=== PATIENT | female | born 1955 | race Caucasian/White ===

== ENCOUNTER 2020-12-28 12:46 | Inpatient (IN) | payer MEDICARE ==
--- NOTE | 2020-12-28 13:17 | ED ---
Altered Mental Status HPI - General Chief Complaint: Altered Mental Status Stated Complaint: Swelling Source: patient, EMS Mode of arrival: EMS - History of Present Illness Initial Comments: Patient is a 65-year-old female with past medical history of chronic renal failure, hepatorenal syndrome who presents to the emergency department from [facility]. She has only been at their facility for 2 days. Previously she was Hospital at [facility]. [facility] felt the patient has had altered mental status. Also report to worsening abdominal distention and low blood pressure. Patient is a very poor historian and cannot provide much history therefore the HPI is limited. Patients family presents and states the patient fell in September. Has been hospitalized since. She normally gets paracenetesis every 3 weeks however she refused the last one she was offered. They do agree she is confused with worsening abdominal distention. - Related Data Home Medications Medication Instructions Recorded Confirmed Acetaminophen Tab [Tylenol] 650 mg PO Q6H PRN 12/28/20 12/28/20 Folic Acid 1 mg PO HS 12/28/20 12/28/20 Lactulose 20 gm PO TID@0700,1300,1900 12/28/20 12/28/20 Levothyroxine Sodium [Synthroid] 25 mcg PO DAILY 12/28/20 12/28/20 Pantoprazole Sodium [Protonix] 40 mg PO DAILY 12/28/20 12/28/20 Potassium Chloride ER [K-Dur 20] 40 meq PO BID@0700,1600 12/28/20 12/28/20 Sennosides [Senna] 8.6 mg PO BID PRN 12/28/20 12/28/20 Thiamine [Vitamin B-1] 50 mg PO HS 12/28/20 12/28/20 Vitamin B Complex 1 cap PO HS 12/28/20 12/28/20 traMADol HCL 50 mg PO BID PRN 12/28/20 12/28/20 Allergies Allergy/AdvReac Type Severity Reaction Status Date / Time No Known Allergies Allergy Verified 12/28/20 14:12 Review of Systems ROS Statement: Those systems with pertinent positive or pertinent negative responses have been documented in the HPI. ROS Other: All systems not noted in ROS Statement are negative. Past Medical History Past Medical History: GERD/Reflux, Liver Disease, Renal Disease Additional Past Medical History / Comment(s): fx. L humerus,hepatorenal syndrome, alcoholic cirrosis ofliver with ascites, anemia History of Any Multi-Drug Resistant Organisms: None Reported Past Surgical History: No Surgical Hx Reported Past Psychological History: No Psychological Hx Reported Smoking Status: Never smoker Past Alcohol Use History: None Reported Past Drug Use History: None Reported General Exam Limitations: altered mental status General appearance: alert, in no apparent distress, cachectic Head exam: Present: atraumatic, normocephalic, normal inspection Eye exam: Present: PERRL, EOMI ENT exam: Present: mucous membranes dry Respiratory exam: Present: normal lung sounds bilaterally. Absent: respiratory distress, wheezes, rales, rhonchi, stridor Cardiovascular Exam: Present: tachycardia GI/Abdominal exam: Present: distended, tenderness Back exam: Present: other (stage 2 sacral wound) Neurological exam: Present: alert Psychiatric exam: Present: anxious Skin exam: Present: pallor Course Vital Signs 12/28/20 12/28/20 12/28/20 12:48 13:55 14:55 Temperature 96.7 F L Pulse Rate 115 H 118 H 120 H Respiratory 19 Rate Blood Pressure 88/75 86/57 81/64 O2 Sat by Pulse 97 Oximetry 12/28/20 12/28/20 12/28/20 15:55 16:55 17:42 Temperature 98.5 F Pulse Rate 115 H 110 H 112 H Respiratory 20 Rate Blood Pressure 85/54 90/53 95/38 O2 Sat by Pulse 96 98 Oximetry 12/28/20 12/28/20 12/28/20 17:53 20:33 20:34 Temperature 98.1 F Pulse Rate 105 H 108 H Respiratory 18 18 Rate Blood Pressure 100/37 90/74 90/74 O2 Sat by Pulse 100 98 Oximetry 12/28/20 20:43 Temperature Pulse Rate 107 H Respiratory 18 Rate Blood Pressure 97/68 O2 Sat by Pulse 97 Oximetry Procedures - Sepsis Sepsis Focused Exam #1 Time Sepsis Criteria Met: 14:27 Sepsis Focused Exam Date: 12/28/20 Sepsis Focused Exam Time: 20:05 Sepsis Focused Exam Complete: Yes Vital Signs & RN Notes Reviewed: Yes Capillary Refill: < 2 Seconds: Fingers, Toes Peripheral Pulses: Weak: Radial (R), Radial (L) Skin Color: Ashen, Pallor Respiratory Exam: decreased breath sounds Cardiovascular Exam: tachycardia Medical Decision Making - Medical Decision Making Upon arrival patient was placed into room 12. A thorough history and physical exam is performed. IV is established the patient is started on IV fluids. She does have improvement in her blood pressures and heart rate. Laboratories is conducted. Demonstrate a white count of 18.4. Creatinine is 2.1. Unknown the patient's baseline. Urinalysis is grossly infected. Cultures obtained and the patient initiated on Rocephin. CT performed of the patient's brain which i nserts no acute findings. Chest x-ray is performed which demonstrates no evidence for pulmonary disease. CT the abdomen and pelvis demonstrates increasing abdominal ascites. Discussed the case with the patient's family. Recommended admission for which the patient and family did agree to. Family requested the patient remain a full code. I will consult GI. I did speak with Dr. Horner. Patient is currently awaiting a bed on the floor - Lab Data Result diagrams: 12/29/20 04:42 12/29/20 04:42 Lab Results 12/28/20 12/28/20 12/28/20 Range/Units 13:37 13:57 13:57 WBC 18.4 H (3.8-10.6) k/uL RBC 3.29 L (3.80-5.40) m/uL Hgb 10.1 L (11.4-16.0) gm/dL Hct 30.4 L (34.0-46.0) % MCV 92.4 (80.0-100.0) fL MCH 30.8 (25.0-35.0) pg MCHC 33.3 (31.0-37.0) g/dL RDW 15.5 (11.5-15.5) % Plt Count 267 (150-450) k/uL MPV 8.2 Neutrophils % 83 % Lymphocytes % 11 % Monocytes % 4 % Eosinophils % 1 % Basophils % 0 % Neutrophils # 15.4 H (1.3-7.7) k/uL Lymphocytes # 2.0 (1.0-4.8) k/uL Monocytes # 0.8 (0-1.0) k/uL Eosinophils # 0.1 (0-0.7) k/uL Basophils # 0.0 (0-0.2) k/uL PT 12.0 (9.0-12.0) sec INR 1.1 (<1.2) APTT 28.4 (22.0-30.0) sec Sodium (137-145) mmol/L Potassium (3.5-5.1) mmol/L Chloride (98-107) mmol/L Carbon Dioxide (22-30) mmol/L Anion Gap mmol/L BUN (7-17) mg/dL Creatinine (0.52-1.04) mg/dL Est GFR (CKD-EPI)AfAm (>60 ml/min/1.73 sqM) Est GFR (CKD-EPI)NonAf (>60 ml/min/1.73 sqM) Glucose (74-99) mg/dL POC Glucose (mg/dL) 121 H (75-99) mg/dL POC Glu Jira Developer ID Simon Stevens Plasma Lactic Acid Rakesh (0.7-2.0) mmol/L Calcium (8.4-10.2) mg/dL Magnesium (1.6-2.3) mg/dL Total Bilirubin (0.2-1.3) mg/dL AST (14-36) U/L ALT (4-34) U/L Alkaline Phosphatase (38-126) U/L Ammonia (<30) umol/L Creatine Kinase (30-135) U/L Troponin I (0.000-0.034) ng/mL Total Protein (6.3-8.2) g/dL Albumin (3.5-5.0) g/dL TSH (0.465-4.680) mIU/L Free T4 (0.78-2.19) ng/dL Urine Color Urine Appearance (Clear) Urine pH (5.0-8.0) Ur Specific [place] (1.001-1.035) Urine Protein (Negative) Urine Glucose (UA) (Negative) Urine Ketones (Negative) Urine Blood (Negative) Urine Nitrite (Negative) Urine Bilirubin (Negative) Urine Urobilinogen (<2.0) mg/dL Ur Leukocyte Esterase (Negative) Urine RBC (0-5) /hpf Urine WBC (0-5) /hpf Urine WBC Clumps (None) /hpf Amorphous Sediment (None) /hpf Urine Bacteria (None) /hpf Urine Mucus (None) /hpf 12/28/20 12/28/20 12/28/20 Range/Units 13:57 13:57 13:57 WBC (3.8-10.6) k/uL RBC (3.80-5.40) m/uL Hgb (11.4-16.0) gm/dL Hct (34.0-46.0) % MCV (80.0-100.0) fL MCH (25.0-35.0) pg MCHC (31.0-37.0) g/dL RDW (11.5-15.5) % Plt Count (150-450) k/uL MPV Neutrophils % % Lymphocytes % % Monocytes % % Eosinophils % % Basophils % % Neutrophils # (1.3-7.7) k/uL Lymphocytes # (1.0-4.8) k/uL Monocytes # (0-1.0) k/uL Eosinophils # (0-0.7) k/uL Basophils # (0-0.2) k/uL PT (9.0-12.0) sec INR (<1.2) APTT (22.0-30.0) sec Sodium 131 L (137-145) mmol/L Potassium 4.5 (3.5-5.1) mmol/L Chloride 101 (98-107) mmol/L Carbon Dioxide 21 L (22-30) mmol/L Anion Gap 9 mmol/L BUN 53 H (7-17) mg/dL Creatinine 2.16 H (0.52-1.04) mg/dL Est GFR (CKD-EPI)AfAm 27 (>60 ml/min/1.73 sqM) Est GFR (CKD-EPI)NonAf 23 (>60 ml/min/1.73 sqM) Glucose 122 H (74-99) mg/dL POC Glucose (mg/dL) (75-99) mg/dL POC Glu Jira Developer ID Plasma Lactic Acid Rakesh (0.7-2.0) mmol/L Calcium 8.3 L (8.4-10.2) mg/dL Magnesium 2.0 (1.6-2.3) mg/dL Total Bilirubin 0.9 (0.2-1.3) mg/dL AST 39 H (14-36) U/L ALT 21 (4-34) U/L Alkaline Phosphatase 162 H (38-126) U/L Ammonia (<30) umol/L Creatine Kinase 48 (30-135) U/L Troponin I <0.012 (0.000-0.034) ng/mL Total Protein 6.2 L (6.3-8.2) g/dL Albumin 2.4 L (3.5-5.0) g/dL TSH 5.520 H (0.465-4.680) mIU/L Free T4 2.19 (0.78-2.19) ng/dL Urine Color Yellow Urine Appearance Turbid H (Clear) Urine pH 5.5 (5.0-8.0) Ur Specific [place] 1.019 (1.001-1.035) Urine Protein 2+ H (Negative) Urine Glucose (UA) Negative (Negative) Urine Ketones Trace H (Negative) Urine Blood Large H (Negative) Urine Nitrite Negative (Negative) Urine Bilirubin Negative (Negative) Urine Urobilinogen <2.0 (<2.0) mg/dL Ur Leukocyte Esterase Large H (Negative) Urine RBC 122 H (0-5) /hpf Urine WBC >182 H (0-5) /hpf Urine WBC Clumps Many H (None) /hpf Amorphous Sediment Rare H (None) /hpf Urine Bacteria Many H (None) /hpf Urine Mucus Few H (None) /hpf 12/28/20 12/28/20 Range/Units 13:57 13:57 WBC (3.8-10.6) k/uL RBC (3.80-5.40) m/uL Hgb (11.4-16.0) gm/dL Hct (34.0-46.0) % MCV (80.0-100.0) fL MCH (25.0-35.0) pg MCHC (31.0-37.0) g/dL RDW (11.5-15.5) % Plt Count (150-450) k/uL MPV Neutrophils % % Lymphocytes % % Monocytes % % Eosinophils % % Basophils % % Neutrophils # (1.3-7.7) k/uL Lymphocytes # (1.0-4.8) k/uL Monocytes # (0-1.0) k/uL Eosinophils # (0-0.7) k/uL Basophils # (0-0.2) k/uL PT (9.0-12.0) sec INR (<1.2) APTT (22.0-30.0) sec Sodium (137-145) mmol/L Potassium (3.5-5.1) mmol/L Chloride (98-107) mmol/L Carbon Dioxide (22-30) mmol/L Anion Gap mmol/L BUN (7-17) mg/dL Creatinine (0.52-1.04) mg/dL Est GFR (CKD-EPI)AfAm (>60 ml/min/1.73 sqM) Est GFR (CKD-EPI)NonAf (>60 ml/min/1.73 sqM) Glucose (74-99) mg/dL POC Glucose (mg/dL) (75-99) mg/dL POC Glu Jira Developer ID Plasma Lactic Acid Rakesh 3.3 H* (0.7-2.0) mmol/L Calcium (8.4-10.2) mg/dL Magnesium (1.6-2.3) mg/dL Total Bilirubin (0.2-1.3) mg/dL AST (14-36) U/L ALT (4-34) U/L Alkaline Phosphatase (38-126) U/L Ammonia 14 (<30) umol/L Creatine Kinase (30-135) U/L Troponin I (0.000-0.034) ng/mL Total Protein (6.3-8.2) g/dL Albumin (3.5-5.0) g/dL TSH (0.465-4.680) mIU/L Free T4 (0.78-2.19) ng/dL Urine Color Urine Appearance (Clear) Urine pH (5.0-8.0) Ur Specific [place] (1.001-1.035) Urine Protein (Negative) Urine Glucose (UA) (Negative) Urine Ketones (Negative) Urine Blood (Negative) Urine Nitrite (Negative) Urine Bilirubin (Negative) Urine Urobilinogen (<2.0) mg/dL Ur Leukocyte Esterase (Negative) Urine RBC (0-5) /hpf Urine WBC (0-5) /hpf Urine WBC Clumps (None) /hpf Amorphous Sediment (None) /hpf Urine Bacteria (None) /hpf Urine Mucus (None) /hpf - EKG Data EKG Comments: EKG demonstrates sinus tachycardia with a ventricular rate of 122. HI interval 150. QRS 92. QTC of 436. Wide-complex. No acute ST segments elevations or depressions Disposition Clinical Impression: Sepsis, UTI (urinary tract infection), Hepatorenal syndrome, Ascites Disposition: ADMITTED IP TO THIS HOSP Condition: Critical Is patient prescribed a controlled substance at d/c from ED?: No Decision to Admit Reason: Admit from EC Decision Date: 12/28/20 Decision Time: 16:46
[2020-12-28 13:40] LABS: Glucose,Whole Blood 121 mg/dL (75-99)
[2020-12-28 14:25] LABS: Amorphous Sediment,Urine Rare /hpf; Appearance,Urine Turbid (Clear); Bacteria,Urine Many /hpf; Bilirubin,Urine Negative (Negative); Blood,Urine Large (Negative); Color,Urine Yellow; Glucose,Urine (UA) Negative (Negative); Ketones,Urine Trace (Negative); Leukocyte Esterase,Urine Large (Negative); Mucus,Urine Few /hpf; Nitrite,Urine Negative (Negative); PH, Urine 5.5 (5.0-8.0); Protein,Urine 2+ (Negative); RBC,Urine 122 /hpf (0-5); Specific Gravity,Urine 1.019 (1.001-1.035); Urobilinogen,Urine <2.0 mg/dL (<2.0); WBC,Urine >182 /hpf (0-5)
[2020-12-28 14:35] LABS: Albumin 2.4 g/dL (3.5-5.0); Calcium 8.3 mg/dL (8.4-10.2); Potassium 4.5 mmol/L (3.5-5.1); Total Bilirubin 0.9 mg/dL (0.2-1.3); Total Protein 6.2 g/dL (6.3-8.2)
[2020-12-28 14:36] LABS: Basophils % (A) 0 %; Eosinophils # (A) 0.1 k/uL (0-0.7); Eosinophils % (A) 1 %; HCT 30.4 % (34.0-46.0); HGB 10.1 gm/dL (11.4-16.0); Lymphocytes % (A) 11 %; MCH 30.8 pg (25.0-35.0); MCHC 33.3 g/dL (31.0-37.0); MCV 92.4 fL (80.0-100.0); Mean Platelet Volume 8.2; Monocytes # (A) 0.8 k/uL (0-1.0); Monocytes % (A) 4 %; Neutrophils # (A) 15.4 k/uL (1.3-7.7); Neutrophils % (A) 83 %; Platelet Count 267 k/uL (150-450); RBC 3.29 m/uL (3.80-5.40); RDW 15.5 % (11.5-15.5); WBC 18.4 k/uL (3.8-10.6)
[2020-12-28 14:41] LABS: INR 1.1 (<1.2)
[2020-12-28 14:42] LABS: Partial Thromboplastin Time 28.4 sec (22.0-30.0)
--- NOTE | 2020-12-28 14:46 | XR ---
EXAMINATION TYPE: XR chest 2V DATE OF EXAM: 12/28/2020 COMPARISON: NONE HISTORY: Shortness of breath TECHNIQUE: Frontal and lateral views of the chest are obtained. FINDINGS: Scattered senescent parenchymal changes noted. Hyperinflation compatible with COPD. No evidence for infiltrate. No evidence for atelectasis. Heart size is stable. Mediastinal structures are stable and grossly unremarkable. No evidence for hilar prominence. Degenerative changes dorsal spine. IMPRESSION: 1. No evidence for acute pulmonary disease.
[2020-12-28] MEDS ORDERED: SODIUM CHLORIDE 0.9% 500 ML 500 ML IV ONE ×2 (15:10→16:43)
[2020-12-28] MEDS ORDERED: cefTRIAXone IN SWFI 1,000 MG/10 ML SYRINGE IVP STA (15:11)
--- NOTE | 2020-12-28 15:57 | CT ---
EXAMINATION TYPE: CT brain wo con DATE OF EXAM: 12/28/2020 COMPARISON: None INDICATION: altered mental status DLP: 1098.4 mGycm, Automated exposure control for dose reduction was used. CONTRAST: None CT of the brain is performed utilizing 3 mm thick sections through the posterior fossa and 3 mm thick sections through the remaining calvarium. Study is performed within 24 hours of arrival to the hosp ital. No abnormal hyperdensity is present to suggest an acute intracranial hemorrhage. No mass lesion is evident. No acute infarcts are evident. There is mild periventricular white matter hypodensity which is nonspe cific but can be related to chronic white matter ischemic changes. Ventricles and sulci are prominent for the patient age. Paranasal sinuses and mastoid air cells within the [id number] are clear. IMPRESSIONS: 1. Atrophy with chronic appearing periventricular white matter ischemic type changes
[2020-12-28 16:00] LABS: T4, Free (Free Thyroxine) 2.19 ng/dL (0.78-2.19)
--- NOTE | 2020-12-28 16:05 | CT ---
EXAMINATION TYPE: CT abdomen pelvis wo con DATE OF EXAM: 12/28/2020 COMPARISON: None INDICATION: abdominal distention DLP: 578.8 mGycm, Automated exposure control for dose reduction was used. CONTRAST: 0 mL of Isovue 300. Study performed without Oral Contrast TECHNIQUE: Axial images were obtained from above the diaphragm to the pubic rami in the axial plane a t 5 mm thick sections. Reconstructed images are reviewed on the computer in the coronal plane. FINDINGS: Limited CT sections are obtained the lung bases. The lung bases are clear. Bilateral breast prosthe ses are present. Calcifications are at the edges of the breast prostheses. CT ABDOMEN: Largest amount of ascites is present. Liver: Liver appears small. Spleen: Normal Pancreas: Atrophic Adrenal glands: The adrenal glands are normal. Gallbladder: Cholelithiasis is present. Kidneys: No masses are evident. No hydronephrosis is present. No cysts are present. No renal stone s are evident. Aorta: Vascular calcification is within the aorta. Inferior vena cava: Normal. CT PELVIS: Multiple diverticuli within the sigmoid and descending colon. There may be some slight prominence of small bowel loops in left midabdomen. Bowel loops are poorly evaluated due to ascites and lack of ora l contrast. Appendix: Normal as visualized. Urinary bladder: Decompressed with Wheeler catheter Genitourinary structures: Calcified uterine fibroids are evident. Osseous structures: No suspicious lytic or sclerotic lesions. Distal left humeral fracture is at the edge of the [id number]. IMPRESSIONS: 1. Small liver. 2. Large amount of ascites. 3. Possible ileus. No obstruction is evident.
[2020-12-28] MEDS ORDERED: SODIUM CHLORIDE 0.9% 1,000 ML IV ONE (16:51)
[2020-12-28] MEDS ORDERED: NALOXONE 0.4 MG/ML 1 ML VIAL IV PRN (16:52)
[2020-12-28] MEDS: SODIUM CHLORIDE 0.9% 1,000 ML IV SCH (19:12)
[2020-12-28] MEDS ORDERED: LORazepam 2 MG/ML INJ IV STA ×2 (20:01→20:26)
--- NOTE | 2020-12-28 20:02 | ED ---
Medical Decision Making - Medical Decision Making Patient was persistently hypotensive. Central venous catheter line placement was placed. Patient started on Levophed. She will be dispositioned to the ICU. case discussed with fishing tool operator Dr. Rinaldi. - Lab Data Result diagrams: 12/28/20 13:57 12/28/20 13:57 Lab Results 12/28/20 12/28/20 12/28/20 Range/Units 13:37 13:57 13:57 WBC 18.4 H (3.8-10.6) k/uL RBC 3.29 L (3.80-5.40) m/uL Hgb 10.1 L (11.4-16.0) gm/dL Hct 30.4 L (34.0-46.0) % MCV 92.4 (80.0-100.0) fL MCH 30.8 (25.0-35.0) pg MCHC 33.3 (31.0-37.0) g/dL RDW 15.5 (11.5-15.5) % Plt Count 267 (150-450) k/uL MPV 8.2 Neutrophils % 83 % Lymphocytes % 11 % Monocytes % 4 % Eosinophils % 1 % Basophils % 0 % Neutrophils # 15.4 H (1.3-7.7) k/uL Lymphocytes # 2.0 (1.0-4.8) k/uL Monocytes # 0.8 (0-1.0) k/uL Eosinophils # 0.1 (0-0.7) k/uL Basophils # 0.0 (0-0.2) k/uL PT 12.0 (9.0-12.0) sec INR 1.1 (<1.2) APTT 28.4 (22.0-30.0) sec Sodium (137-145) mmol/L Potassium (3.5-5.1) mmol/L Chloride (98-107) mmol/L Carbon Dioxide (22-30) mmol/L Anion Gap mmol/L BUN (7-17) mg/dL Creatinine (0.52-1.04) mg/dL Est GFR (CKD-EPI)AfAm (>60 ml/min/1.73 sqM) Est GFR (CKD-EPI)NonAf (>60 ml/min/1.73 sqM) Glucose (74-99) mg/dL POC Glucose (mg/dL) 121 H (75-99) mg/dL POC Glu Welding Technician Simon Gaines Plasma Lactic Acid Rakesh (0.7-2.0) mmol/L Calcium (8.4-10.2) mg/dL Magnesium (1.6-2.3) mg/dL Total Bilirubin (0.2-1.3) mg/dL AST (14-36) U/L ALT (4-34) U/L Alkaline Phosphatase (38-126) U/L Ammonia (<30) umol/L Creatine Kinase (30-135) U/L Troponin I (0.000-0.034) ng/mL Total Protein (6.3-8.2) g/dL Albumin (3.5-5.0) g/dL TSH (0.465-4.680) mIU/L Free T4 (0.78-2.19) ng/dL Urine Color Urine Appearance (Clear) Urine pH (5.0-8.0) Ur Specific [place] (1.001-1.035) Urine Protein (Negative) Urine Glucose (UA) (Negative) Urine Ketones (Negative) Urine Blood (Negative) Urine Nitrite (Negative) Urine Bilirubin (Negative) Urine Urobilinogen (<2.0) mg/dL Ur Leukocyte Esterase (Negative) Urine RBC (0-5) /hpf Urine WBC (0-5) /hpf Urine WBC Clumps (None) /hpf Amorphous Sediment (None) /hpf Urine Bacteria (None) /hpf Urine Mucus (None) /hpf 12/28/20 12/28/20 12/28/20 Range/Units 13:57 13:57 13:57 WBC (3.8-10.6) k/uL RBC (3.80-5.40) m/uL Hgb (11.4-16.0) gm/dL Hct (34.0-46.0) % MCV (80.0-100.0) fL MCH (25.0-35.0) pg MCHC (31.0-37.0) g/dL RDW (11.5-15.5) % Plt Count (150-450) k/uL MPV Neutrophils % % Lymphocytes % % Monocytes % % Eosinophils % % Basophils % % Neutrophils # (1.3-7.7) k/uL Lymphocytes # (1.0-4.8) k/uL Monocytes # (0-1.0) k/uL Eosinophils # (0-0.7) k/uL Basophils # (0-0.2) k/uL PT (9.0-12.0) sec INR (<1.2) APTT (22.0-30.0) sec Sodium 131 L (137-145) mmol/L Potassium 4.5 (3.5-5.1) mmol/L Chloride 101 (98-107) mmol/L Carbon Dioxide 21 L (22-30) mmol/L Anion Gap 9 mmol/L BUN 53 H (7-17) mg/dL Creatinine 2.16 H (0.52-1.04) mg/dL Est GFR (CKD-EPI)AfAm 27 (>60 ml/min/1.73 sqM) Est GFR (CKD-EPI)NonAf 23 (>60 ml/min/1.73 sqM) Glucose 122 H (74-99) mg/dL POC Glucose (mg/dL) (75-99) mg/dL POC Glu Welding Technician ID Plasma Lactic Acid Rakesh (0.7-2.0) mmol/L Calcium 8.3 L (8.4-10.2) mg/dL Magnesium 2.0 (1.6-2.3) mg/dL Total Bilirubin 0.9 (0.2-1.3) mg/dL AST 39 H (14-36) U/L ALT 21 (4-34) U/L Alkaline Phosphatase 162 H (38-126) U/L Ammonia (<30) umol/L Creatine Kinase 48 (30-135) U/L Troponin I <0.012 (0.000-0.034) ng/mL Total Protein 6.2 L (6.3-8.2) g/dL Albumin 2.4 L (3.5-5.0) g/dL TSH 5.520 H (0.465-4.680) mIU/L Free T4 2.19 (0.78-2.19) ng/dL Urine Color Yellow Urine Appearance Turbid H (Clear) Urine pH 5.5 (5.0-8.0) Ur Specific [place] 1.019 (1.001-1.035) Urine Protein 2+ H (Negative) Urine Glucose (UA) Negative (Negative) Urine Ketones Trace H (Negative) Urine Blood Large H (Negative) Urine Nitrite Negative (Negative) Urine Bilirubin Negative (Negative) Urine Urobilinogen <2.0 (<2.0) mg/dL Ur Leukocyte Esterase Large H (Negative) Urine RBC 122 H (0-5) /hpf Urine WBC >182 H (0-5) /hpf Urine WBC Clumps Many H (None) /hpf Amorphous Sediment Rare H (None) /hpf Urine Bacteria Many H (None) /hpf Urine Mucus Few H (None) /hpf 12/28/20 12/28/20 Range/Units 13:57 13:57 WBC (3.8-10.6) k/uL RBC (3.80-5.40) m/uL Hgb (11.4-16.0) gm/dL Hct (34.0-46.0) % MCV (80.0-100.0) fL MCH (25.0-35.0) pg MCHC (31.0-37.0) g/dL RDW (11.5-15.5) % Plt Count (150-450) k/uL MPV Neutrophils % % Lymphocytes % % Monocytes % % Eosinophils % % Basophils % % Neutrophils # (1.3-7.7) k/uL Lymphocytes # (1.0-4.8) k/uL Monocytes # (0-1.0) k/uL Eosinophils # (0-0.7) k/uL Basophils # (0-0.2) k/uL PT (9.0-12.0) sec INR (<1.2) APTT (22.0-30.0) sec Sodium (137-145) mmol/L Potassium (3.5-5.1) mmol/L Chloride (98-107) mmol/L Carbon Dioxide (22-30) mmol/L Anion Gap mmol/L BUN (7-17) mg/dL Creatinine (0.52-1.04) mg/dL Est GFR (CKD-EPI)AfAm (>60 ml/min/1.73 sqM) Est GFR (CKD-EPI)NonAf (>60 ml/min/1.73 sqM) Glucose (74-99) mg/dL POC Glucose (mg/dL) (75-99) mg/dL POC Glu Welding Technician ID Plasma Lactic Acid Rakesh 3.3 H* (0.7-2.0) mmol/L Calcium (8.4-10.2) mg/dL Magnesium (1.6-2.3) mg/dL Total Bilirubin (0.2-1.3) mg/dL AST (14-36) U/L ALT (4-34) U/L Alkaline Phosphatase (38-126) U/L Ammonia 14 (<30) umol/L Creatine Kinase (30-135) U/L Troponin I (0.000-0.034) ng/mL Total Protein (6.3-8.2) g/dL Albumin (3.5-5.0) g/dL TSH (0.465-4.680) mIU/L Free T4 (0.78-2.19) ng/dL Urine Color Urine Appearance (Clear) Urine pH (5.0-8.0) Ur Specific [place] (1.001-1.035) Urine Protein (Negative) Urine Glucose (UA) (Negative) Urine Ketones (Negative) Urine Blood (Negative) Urine Nitrite (Negative) Urine Bilirubin (Negative) Urine Urobilinogen (<2.0) mg/dL Ur Leukocyte Esterase (Negative) Urine RBC (0-5) /hpf Urine WBC (0-5) /hpf Urine WBC Clumps (None) /hpf Amorphous Sediment (None) /hpf Urine Bacteria (None) /hpf Urine Mucus (None) /hpf Disposition Clinical Impression: Sepsis, UTI (urinary tract infection), Hepatorenal syndrome, Ascites Disposition: ADMITTED IP TO THIS HOSP Condition: Critical Decision Time: 20:02 Procedures - Central Line Placement Left IJ Consent Obtained: verbal consent, emergent situation Prep: mask, gown, gloves Local Anesthesia Used: Lidocaine 1%, with Epi Amount of Anesthesia Used (mls): 3 Ultrasound Used for Placement: Yes Central Line Lumen Inserted: triple Bloods Obtained for Lab: No Central Line Position: good blood return, all ports aspirated, flushed, capped, sutured in place with 3-0 nylon Dressing Applied: Tegaderm Post Procedure X-Ray: tip of catheter in good position Patient Tolerated Procedure: well - Sepsis Sepsis Focused Exam #1 Time Sepsis Criteria Met: 20:00 Sepsis Focused Exam Date: 12/28/20 Sepsis Focused Exam Time: 20:01 Sepsis Focused Exam Complete: Yes Vital Signs & RN Notes Reviewed: Yes Capillary Refill: > 2 Seconds: Fingers, Toes Peripheral Pulses: Weak: Radial (R), Radial (L), Posterior Tibialis (R), Posterior Tibialis (L), Dorsalis Pedis (R), Dorsalis Pedis (L) Skin Color: Erythema Respiratory Exam: normal lung sounds Cardiovascular Exam: tachycardia
[2020-12-28] MEDS: NOREPINEPHRINE 32 MG in SODIUM CHLORIDE 0.9% 218 ML IV SCH (20:17)
[2020-12-28 21:18] LABS: Glucose,Whole Blood 120 mg/dL (75-99)
[2020-12-29] MEDS ORDERED: VANCOMYCIN IV PER PHARMACY 1 EACH MISC MISCELLANE PRN (06:03)
[2020-12-29 06:13] LABS: Calcium 7.1 mg/dL (8.4-10.2); Potassium 4.5 mmol/L (3.5-5.1)
[2020-12-29] MEDS ORDERED: VANCOMYCIN 1,250 MG in SODIUM CHLORIDE 0.9% 250 ML IVPB ONE (06:15)
[2020-12-29] MEDS: SODIUM CHLORIDE 0.9% 1,000 ML IV SCH ×2 (06:22→10:05)
[2020-12-29 06:24] LABS: Basophils % (A) 0 %; Eosinophils # (A) 0.1 k/uL (0-0.7); Eosinophils % (A) 0 %; HCT 26.9 % (34.0-46.0); Hypochromasia Slight; Lymphocytes # (A) 1.6 k/uL (1.0-4.8); Lymphocytes % (A) 7 %; MCHC 31.3 g/dL (31.0-37.0); MCV 95.7 fL (80.0-100.0); Mean Platelet Volume 9.4; Monocytes # (A) 1.1 k/uL (0-1.0); Monocytes % (A) 5 %; Neutrophils # (A) 18.5 k/uL (1.3-7.7); Platelet Count 281 k/uL (150-450); RBC 2.81 m/uL (3.80-5.40); RDW 15.2 % (11.5-15.5); WBC 21.4 k/uL (3.8-10.6)
[2020-12-29] MEDS: PIPERACILLIN-TAZOBACTAM 3.375 GM in SODIUM CHLORIDE 0.9% 100 ML IVPB SCH ×2 (06:26→13:48)
[2020-12-29] MEDS ORDERED: LEVOTHYROXINE 25 MCG TAB PO SCH (06:30)
--- NOTE | 2020-12-29 06:47 | XR ---
EXAMINATION TYPE: XR chest 1V portable DATE OF EXAM: 12/29/2020 CLINICAL HISTORY: Difficulty breathing and worsening hypoxia progress study. TECHNIQUE: Single AP portable semiupright view of the chest is obtained. COMPARISON: Chest x-ray from one day earlier FINDINGS: Redemonstrated elevated right hemidiaphragm and background low lung volumes. Cardiac silh ouette size is stable and within normal limits with atherosclerotic change thoracic aorta. New bilate ral opacities greatest perihilar region and right basilar region. IMPRESSION: New Bilateral edema and/or infiltrates. Correlate clinically for possible covid-19 infect ion.
[2020-12-29 06:56] LABS: HGB 8.4 gm/dL (11.4-16.0)
--- NOTE | 2020-12-29 07:25 | P.CNPUL ---
History of Present Illness Consult date: 12/29/20 Chief complaint: Altered mental status History of present illness: This is a 74 year old female patient presented to the ED from [facility] with mental status change and hypotension. The patient was noted to have some abdominal distention and low blood pressure. She is a very poor historian and she was unable to vomit any further information. She does have chronic ascites and she gets paracentesis every 3 weeks. Note that the patient has history of chronic kidney disease, chronic ascites, chronic liver failure secondary to alcoholic liver cirrhosis. She has had previous history of falls also. In the ED, the patient had a temperature of 96.7 and she was tachycardic and initial blood pressure was 88/75. She was started on IV fluids. There was some improvement in the initial blood pressure in the heart". White cell count was 18.4 with hemoglobin of 10.1 and a platelet count of 267. Creatinine is at 2.1 with [place] 53. Rest of the electrolytes are essentially within normal limits with a serum bicarb of 21. Coagulation profile is within normal limits. UA was abnormal with more than 180 WBCs, few RBCs, +2 protein. TSH was 5.5 with a free T4 2 0.1. CPK was 48. Troponin was less than 0.01. Liver function tests inclu ded AST of 39, ALT of 21, alkaline phosphatase 262 and a bilirubin of 0.9. The ammonia level was 14. The patient was diagnosed having UTI with secondary sepsis. The patient was started on IV Rocephin. CAT scan of the abdomen was done and demonstrated abdominal ascites. During the course of the treatment, the patient remained hypotensive. The triple-lumen cath was inserted. She was started also on pressors and a critical care consultation was requested. She is currently in the emergency department. The computed tomography scan of the brain showed atrophy and chronic appearing periventricular white matter disease and a chest x-ray shows no evidence of an acute pulmonary abnormalities. She is ER note that since admission, the patient's condition is a progressively declining. Overnight, she required additional fluid boluses and she was given additional 2 L. Pressor requirements progressively went And currently is levo fed is running at micrograms per kilogram per minute. During the course of her illness, she was started on vasopressin physiologic dose of 0.03 units an hour. Blood urine output is minimal at this point in time. She is tachycardic with a heart rate of 119. The respiratory rate is currently 29 and the patient became progressively more hypoxic and currently she is on the percent nonrebreather facemask with a pulse ox of 93%. She was started on a combination of Zosyn and vancomycin. Rocephin was discontinued. Meanwhile, his labs from today showing a white cell count of 21 and hemoglobin of 8.4. Her serum bicarb is down to 13. Her lactic acid level was down to 1.6 from yesterday and this is to be repeated. Serum bicarb is a 13. Creatinine is at 2 with a BUN of 42. The chest x-rays showing cardiomegaly with bilateral interstitial infiltrates consistent with developing pulmonary edema. She has a triple-lumen catheter in her left IJ and his CVP needs to be monitored. Review of Systems Constitutional: Reports fatigue, Reports poor appetite, Reports weakness Eyes: denies as per HPI, denies blurred vision, denies bulging eye, denies decreased vision, denies diplopia, denies discharge, denies dry eye, denies irritation, denies itching, denies pain, denies photophobia, denies loss of peripheral vision, denies loss of vision, denies tunnel vision/blind spots Ears: deny: decreased hearing, ear discharge, earache, tinnitus Ears, nose, mouth and throat: Reports as per HPI Breasts: absent: as per HPI, change in shape, gynecomastia, masses, nipple discharge, pain, skin changes, swelling Cardiovascular: Reports as per HPI Respiratory: Reports as per HPI Genitourinary: Reports as per HPI Menstruation: Reports as per HPI Musculoskeletal: Reports as per HPI, Reports frequent falls Musculoskeletal: absent: ankle pain, ankle stiffness, ankle swelling Integumentary: Reports as per HPI Neurological: Reports change in mentation, Reports confusion, Reports gait dysfunction Psychiatric: Reports as per HPI Endocrine: Reports as per HPI Hematologic/Lymphatic: Reports as per HPI Allergic/Immunologic: Reports as per HPI Past Medical History Past Medical History: GERD/Reflux, Liver Disease, Renal Disease, Thyroid Disorder Additional Past Medical History / Comment(s): Chronic alcohol liver disease/cirrhosis, chronic ascites, history of chronic kidney disease, history of fall, history of left humeral fracture, chronic anemia, chronic ascites,hypothyroidism History of Any Multi-Drug Resistant Organisms: None Reported Past Surgical History: No Surgical Hx Reported Past Psychological History: No Psychological Hx Reported Smoking Status: Never smoker Past Alcohol Use History: None Reported Past Drug Use History: None Reported Medications and Allergies Home Medications Medication Instructions Recorded Confirmed Type Acetaminophen Tab [Tylenol] 650 mg PO Q6H PRN 12/28/20 12/28/20 History Folic Acid 1 mg PO HS 12/28/20 12/28/20 History Lactulose 20 gm PO TID@0700,1300,1900 12/28/20 12/28/20 History Levothyroxine Sodium [Synthroid] 25 mcg PO DAILY 12/28/20 12/28/20 History Pantoprazole Sodium [Protonix] 40 mg PO DAILY 12/28/20 12/28/20 History Potassium Chloride ER [K-Dur 20] 40 meq PO BID@0700,1600 12/28/20 12/28/20 History Sennosides [Senna] 8.6 mg PO BID PRN 12/28/20 12/28/20 History Thiamine [Vitamin B-1] 50 mg PO HS 12/28/20 12/28/20 History Vitamin B Complex 1 cap PO HS 12/28/20 12/28/20 History traMADol HCL 50 mg PO BID PRN 12/28/20 12/28/20 History Allergies Allergy/AdvReac Type Severity Reaction Status Date / Time No Known Allergies Allergy Verified 12/28/20 14:12 Physical Exam Vitals: Vital Signs Temp Pulse Resp BP Pulse Ox 12/29/20 04:00 25 H 12/29/20 00:00 12 12/28/20 22:30 97.6 F 91 12 82/61 12/28/20 22:15 91 7 L 82/61 95 12/28/20 22:00 91 25 H 91/76 12/28/20 21:45 92 19 91/76 94 L 12/28/20 21:30 97 23 93/64 12/28/20 21:17 97.0 F L 94 L 12/28/20 21:15 105 H 18 107/87 97 12/28/20 21:00 107/80 96 12/28/20 20:45 105 H 97/68 95 12/28/20 20:43 107 H 18 97/68 97 12/28/20 20:34 90/74 12/28/20 20:33 98.1 F 108 H 18 90/74 98 12/28/20 17:53 105 H 18 100/37 100 12/28/20 17:42 112 H 20 95/38 98 12/28/20 16:55 98.5 F 110 H 90/53 96 12/28/20 15:55 115 H 85/54 12/28/20 14:55 120 H 81/64 12/28/20 13:55 118 H 86/57 12/28/20 12:48 96.7 F L 115 H 19 88/75 97 Intake and Output 12/28/20 12/29/20 12/29/20 22:59 06:59 14:59 Intake Total 2650 Output Total 55 Balance 2595 Intake: Intake, IV Titration 2650 Amount Sodium Chloride 0.9% 1, 2650 000 ml @ 130 mls/hr IV . [id number] [facility] Rx#:[id number] Output: Urine 55 Other: Voiding Method Indwelling Catheter Indwelling Catheter Weight 62.959 kg 49.9 kg Gen. appearance the patient is calm comfortable likely distress, thin frail with a body mass index of 23.1. No agitation. No apparent respiratory distress at this point in time. Head exam was generally normal. There was no scleral icterus or corneal arcus. Mucous membranes were moist. Neck was supple and without jugular venous distension, thyromegaly, or carotid bruits. Carotids were easily palpable bilaterally. There was no adenopathy. Lungs were clear to auscultation and percussion, and with normal diaphragmatic excursion. No wheezes or rales were noted. Cardiac exam revealed the PMI to be normally situated and sized. The rhythm was regular and no extrasystoles were noted during several minutes of auscultation. The first and second heart sounds were normal and physiologic splitting of the second heart sound was noted. There were no murmurs, rubs, clicks, or gallops. Abdomen is distended and there is positive fluid wave and shifting dullness consistent with ascites. No direct tenderness. No rebound tenderness. No guarding. Examination of the extremities revealed easily palpable radial, femoral and pedal pulses. There was no cyanosis, clubbing or edema. Examination of the skin revealed no evidence of significant rashes, suspicious appearing nevi or other concerning lesions. Results - Laboratory Findings CBC and BMP: 12/29/20 04:42 12/29/20 04:42 PT/INR, D-dimer PT 12.0 sec (9.0-12.0) 12/28/20 13:57 INR 1.1 (<1.2) 12/28/20 13:57 Abnormal lab findings: Abnormal Labs 12/28/20 12/28/20 12/28/20 13:37 13:57 13:57 WBC 18.4 H RBC 3.29 L Hgb 10.1 L Hct 30.4 L Neutrophils # 15.4 H Monocytes # Sodium Chloride Carbon Dioxide BUN Creatinine Glucose POC Glucose (mg/dL) 121 H Plasma Lactic Acid Rakesh Calcium AST Alkaline Phosphatase Total Protein Albumin TSH Urine Appearance Turbid H Urine Protein 2+ H Urine Ketones Trace H Urine Blood Large H Ur Leukocyte Esterase Large H Urine RBC 122 H Urine WBC >182 H Urine WBC Clumps Many H Amorphous Sediment Rare H Urine Bacteria Many H Urine Mucus Few H 12/28/20 12/28/20 12/28/20 13:57 13:57 21:17 WBC RBC Hgb Hct Neutrophils # Monocytes # Sodium 131 L Chloride Carbon Dioxide 21 L BUN 53 H Creatinine 2.16 H Glucose 122 H POC Glucose (mg/dL) 120 H Plasma Lactic Acid Rakesh 3.3 H* Calcium 8.3 L AST 39 H Alkaline Phosphatase 162 H Total Protein 6.2 L Albumin 2.4 L TSH 5.520 H Urine Appearance Urine Protein Urine Ketones Urine Blood Ur Leukocyte Esterase Urine RBC Urine WBC Urine WBC Clumps Amorphous Sediment Urine Bacteria Urine Mucus 12/29/20 12/29/20 04:42 04:42 WBC 21.4 H RBC 2.81 L Hgb 8.4 L D Hct 26.9 L Neutrophils # 18.5 H Monocytes # 1.1 H Sodium 135 L Chloride 110 H Carbon Dioxide 13 L BUN 42 H Creatinine 2.02 H Glucose 168 H POC Glucose (mg/dL) Plasma Lactic Acid Rakesh Calcium 7.1 L AST Alkaline Phosphatase Total Protein Albumin TSH Urine Appearance Urine Protein Urine Ketones Urine Blood Ur Leukocyte Esterase Urine RBC Urine WBC Urine WBC Clumps Amorphous Sediment Urine Bacteria Urine Mucus Assessment and Plan Plan: 1 Shock secondary to UTI with sepsis and the patient is hypotensive despite IV fluid resuscitation and the patient is started on IV Pressors and she is on Levophed and a triple lumen catheter has been established in the ED. She has also started on IV antibiotics, pending cultures. Overnight, the patient's condition has decompensated significantly. The patient developed worsening in hemodynamics, progressive hypotension and the patient is currently on high-dose pressors with norepinephrine and she is also on physiologic dose of vasopressin. She is on a combination of Zosyn and vancomycin. Cultures are still pending. She remains altered mentally. She has developed also an acute hypoxic respiratory failure currently on 100% t nonrebreather facemask with interstitial edema 2 altered mental status secondary to sepsis induced encephalopathy. The CT of the brain is negative for any acute abnormalities and she has no focal neurolo gic deficits. This is a metabolic encephalopathy secondary to infection/sepsis 3 Chronic liver failure ad cirrhosis of the alcoholic type, normal LFTs, normal ammonia level and the patient altered mental status is essentially related to sepsis/UTI. Spontaneous bacterial peritonitis is felt to be less likely. This needs to be checked later stage once a diagnostic and therapeutic paracentesis done 4 Chronic Kidney disease, stage 3 5 Chronic recurrent ascites requiring periodic paracentesis, every 3 weeks 6 lactic acidosis with a lactic acid level of 3.3, currently down to 1.6, secondary to above, and the patient continues to have a component of metabolic acidosis. 7 leukocytosis secondary to above 8 hypothyroidism, chemically euthyroid 9 acute hypoxic respiratory failure currently on the percent nonrebreather facemask Plan This patient has already received a total of 3 L of IV fluids in the emergency department. Addition of 2 L of IV fluids was given here in the ICU and the patient is currently running at 150 mL an hour of normal saline in addition to high-dose pressors, vasopressin, physiologic dose in addition to norepinephrine. Catheter will be inserted. CBC will be monitored. She is in the 100% nonrebreather facemask. CODE STATUS will be discussed with the family. I think her CODE STATUS is full and she may possibly require intubation and mechanical ventilation if she develops or shows any signs of respiratory insufficiency. We'll insert an arterial line. We'll check a blood gas. We'll recheck lactic acid level. Condition is extremely critical. Prognosis poor. A sample of the ascitic fluid will be also taken to rule out the possibility of spontaneous bacterial peritonitis. We'll continue to follow. Family is arriving to the hospital. Time with Patient: Greater than 30
[2020-12-29] MEDS ORDERED: SODIUM CHLORIDE 0.9% 50 ML with VASOPRESSIN 20 UNIT IVPB SCH ×2 (07:41)
--- NOTE | 2020-12-29 07:50 | P.PCN ---
Date of Procedure: 12/29/20 Preoperative Diagnosis: Septic shock Postoperative Diagnosis: Septic shock Procedure(s) Performed: Arterial line insertion Anesthesia: local Surgeon: Radha Rinaldi Pathology: other Condition: critical Disposition: ICU Operative Findings: Indication: Hemodynamic monitoring. A time-out was completed verifying correct patient, procedure, site, positioning, and implant(s) or special equipment if applicable. . The patients left groin was prepped and draped in sterile fashion. 1% Lidocaine was used to anesthetize the area. An 18G Arrow arterial line was introduced into the femoral artery. The catheter was threaded over the guide wire and the needle was removed with appropriate pulsatile blood return. Blood loss was minimal. The catheter was then sutured in place to the skin and a sterile dressing applied. Perfusion to the extremity distal to the point of catheter insertion was checked and found to be adequate. The patient tolerated the procedure well and there were no complications.
[2020-12-29] MEDS: LACTULOSE 20 GM/30 ML CUP PO SCH ×2 (08:09→13:46)
[2020-12-29] MEDS ORDERED: SODIUM CHLORIDE 0.9% 1,000 ML IV ONE (08:10)
[2020-12-29] MEDS: NOREPINEPHRINE 32 MG in SODIUM CHLORIDE 0.9% 218 ML IV SCH (08:12)
[2020-12-29 08:50] LABS: ABG Base Excess -23.4 mmol/L; ABG Oxygen Saturation 94.5 % (94-97); ABG PCO2 23 mmHg (35-45); ABG PO2 94 mmHg (83-108); ABG TCO2 7 mmol/L (19-24); Allen Test Performed? Yes
[2020-12-29 08:52] LABS: ABG HCO3 7 mmol/L (21-25); ABG PH 7.08 (7.35-7.45)
[2020-12-29] MEDS ORDERED: PANTOPRAZOLE 40 MG TABLET PO SCH (09:00)
[2020-12-29] MEDS ORDERED: ENOXAPARIN 40 MG/0.4 ML SYRINGE SQ SCH (09:00)
[2020-12-29] MEDS ORDERED: SODIUM BICARB 8.4% 50 ML SYR (1 MEQ/ML) IV STA ×3 (09:36→10:56)
[2020-12-29] MEDS ORDERED: SODIUM BICARB 8.4% 50 ML SYR (1 MEQ/ML) ONE (09:43)
--- NOTE | 2020-12-29 10:00 | ECHOF ---
Referral Reason: MEASUREMENTS -------- HEIGHT: 165.1 cm WEIGHT: 49.9 kg BP: RVIDd: 2.3 cm (< 3.3) IVSd: 1.0 cm (0.6 - 1.1) LVIDd: 4.2 cm (3.9 - 5.3) LVPWd: 1.0 cm (0.6 - 1.1) IVSs: 1.0 cm LVIDs: 4.2 cm LVPWs: 1.1 cm Ao Diam: 2.8 cm (2.0 - 3.7) AV Cusp: 1.7 cm (1.5 - 2.6) LA Diam: 2.8 cm (2.7 - 3.8) MV E Arthur: 0.83 m/s MV DecT: 229 ms MV A Arthur: 0.32 m/s MV E/A Ratio: 2.63 RAP: 5.00 mmHg RVSP: 20.45 mmHg FINDINGS -------- This was a technically difficult study with suboptimal views. The left ventricular size is normal. Left ventricular wall thickness is normal. There is normal g lobal left ventricular contractility. Overall left ventricular systolic function is severely impair ed with, an EF < 20%. Basal Segment Kamala only. The right ventricle is normal in size. The left atrial size is normal. The right atrial size is normal. Lumason used Aortic valve is trileaflet and is mildly thickened. The mitral valve is normal. There is trace mitral regurgitation. The tricuspid valve appears structurally normal. Mild tricuspid regurgitation present. Right vent ricular systolic pressure is normal at < 35 mmHg. There is no pulmonic regurgitation present. The aortic root size is normal. IVC Not well visulized. There is no pericardial effusion. CONCLUSIONS -------- 1. The left ventricular size is normal. 2. Left ventricular wall thickness is normal. 3. There is normal global left ventricular contractility. 4. Overall left ventricular systolic function is severely impaired with, an EF < 20%.only posterior l ateral wall showing contraction. The findings are consistent with ischemic cardiomyopathy 5. Basal Segment Kamala only. 6. Aortic valve is trileaflet and is mildly thickened. 7. There is trace mitral regurgitation. 8. Mild tricuspid regurgitation present. 9. There is no pericardial effusion. TRAFFIC ANALYST: Deepti Dillon RDCS
[2020-12-29] MEDS ORDERED: ASPIRIN 81 MG PO SCH (10:30)
--- NOTE | 2020-12-29 10:48 | P.HPIM ---
History of Present Illness This is a pleasant 65 years old female with past medical history of alcoholic liver cirrhosis, chronic ascites and chronic kidney disease, hypothyroidism, gastroesophageal reflux disease. She is a resident of [facility]. She has only been at their facility for 2 days. Previously she was Hospital at [facility]. Patient could not provide information was obtained from and daughter at bedside. Patient fell at home about 2 months ago while she is a known heavy drinker, she went to [facility] in [facility] and treated there for a few days for left upper extremity fracture and decompensated liver cirrhosis status post paracentesis. From there she sent to [facility] which is a rehab for 1.5 months, patient was not participated in rehab much so she was transferred to [facility] 2-3 days ago for placement. However it was transferred to [facility] last night because of confusion and low blood pressure She is currently hypotensive with a blood pressure 82/61, respiratory rates 18 to 25 , afebrile. She is saturating 95% 2 L oxygen Labs showed leukocytosis with WBC 20 1.4K, hemoglobin 8.4. PH is 7.0 and pO2 is normal at 94 with pCO2 low at 23. Elevated creatinine at 2.0, unknown baseline Sena virus not detected. UA showing infection and UTI. Elevated lactic acid 3.3, 1.6 and 8.1. Mildly elevated liver enzymes. TSH is high at 5.5 but normal free T4 at 2.1. Troponin less than 0.012. Ammonia is normal at 14. Urine culture is pending CT of the brain: Atrophy with no acute changes CT of the abdomen and pelvis without contrast: Ascites. Cholelithiasis. No mention of hydronephrosis Chest x-ray: No acute process EKG showing sinus tachycardia at [address]-T changes Echocardiogram: Ejection fraction less than 20%. Only posterior lateral wall s howing contraction the findings are consistent with ischemic cardiomyopathy Patient was discharged ceftriaxone and switched to Zosyn and IV vancomycin Review of Systems n/a Past Medical History Past Medical History: GERD/Reflux, Liver Disease, Renal Disease, Thyroid Disorder Additional Past Medical History / Comment(s): Chronic alcohol liver disease/cirrhosis, chronic ascites, history of chronic kidney disease, history of fall, history of left humeral fracture, chronic anemia, chronic ascites,hypothyroidism History of Any Multi-Drug Resistant Organisms: None Reported Past Surgical History: No Surgical Hx Reported Past Psychological History: No Psychological Hx Reported Smoking Status: Never smoker Past Alcohol Use History: None Reported Past Drug Use History: None Reported Medications and Allergies Home Medications Medication Instructions Recorded Confirmed Type Acetaminophen Tab [Tylenol] 650 mg PO Q6H PRN 12/28/20 12/28/20 History Folic Acid 1 mg PO HS 12/28/20 12/28/20 History Lactulose 20 gm PO TID@0700,1300,1900 12/28/20 12/28/20 History Levothyroxine Sodium [Synthroid] 25 mcg PO DAILY 12/28/20 12/28/20 History Pantoprazole Sodium [Protonix] 40 mg PO DAILY 12/28/20 12/28/20 History Potassium Chloride ER [K-Dur 20] 40 meq PO BID@0700,1600 12/28/20 12/28/20 History Sennosides [Senna] 8.6 mg PO BID PRN 12/28/20 12/28/20 History Thiamine [Vitamin B-1] 50 mg PO HS 12/28/20 12/28/20 History Vitamin B Complex 1 cap PO HS 12/28/20 12/28/20 History traMADol HCL 50 mg PO BID PRN 12/28/20 12/28/20 History Allergies Allergy/AdvReac Type Severity Reaction Status Date / Time No Known Allergies Allergy Verified 12/28/20 14:12 Physical Exam Vitals: Vital Signs Temp Pulse Resp BP Pulse Ox 12/29/20 04:00 25 H 12/29/20 00:00 12 12/28/20 22:30 97.6 F 91 12 82/61 12/28/20 22:15 91 7 L 82/61 95 12/28/20 22:00 91 25 H 91/76 12/28/20 21:45 92 19 91/76 94 L 12/28/20 21:30 97 23 93/64 12/28/20 21:17 97.0 F L 94 L 12/28/20 21:15 105 H 18 107/87 97 12/28/20 21:00 107/80 96 12/28/20 20:45 105 H 97/68 95 12/28/20 20:43 107 H 18 97/68 97 12/28/20 20:34 90/74 12/28/20 20:33 98.1 F 108 H 18 90/74 98 12/28/20 17:53 105 H 18 100/37 100 12/28/20 17:42 112 H 20 95/38 98 12/28/20 16:55 98.5 F 110 H 90/53 96 12/28/20 15:55 115 H 85/54 12/28/20 14:55 120 H 81/64 12/28/20 13:55 118 H 86/57 12/28/20 12:48 96.7 F L 115 H 19 88/75 97 Intake and Output 12/28/20 12/29/20 12/29/20 22:59 06:59 14:59 Intake Total 2900.000 Output Total 55 Balance 2845.000 Intake: Intake, IV Titration 2900.000 Amount Norepinephrine 32 mg In 250.000 Sodium Chloride 0.9% 218 ml @ 0.05 MCG/KG/MIN 1. 476 mls/hr IV .Q24H LOBO Rx#:[id number] Sodium Chloride 0.9% 1, 2650 000 ml @ 130 mls/hr IV . [facility] Rx#:[id number] Output: Urine 55 Other: Voiding Method Indwelling Catheter Indwelling Catheter Weight 62.959 kg 49.9 kg -GENERAL: The patient is confused, does not follow command, eyes are partially opened. Nonverbal. Cachectic HEENT: Pupils are round and equally reacting to light. EOMI. No scleral icterus. No conjunctival pallor. Normocephalic, atraumatic. No pharyngeal erythema. No thyromegaly. CARDIOVASCULAR: S1 and S2 present. No murmurs, rubs, or gallops. PULMONARY: Chest is clear to auscultation, no wheezing or crackles. -ABDOMEN: Soft, nontender, distended, normoactive bowel sounds. No palpable organomegaly. MUSCULOSKELETAL: No joint swelling or deformity. -EXTREMITIES: No cyanosis, clubbing, or pedal edema. Left upper extremity is in yvette bandage NEUROLOGICAL: Gross neurological examination did not reveal any focal deficits. SKIN: No rashes. No petechiae Results CBC & Chem 7: 12/29/20 04:42 12/29/20 04:42 Labs: Abnormal Lab Results - Last 24 Hours (Table) 12/28/20 12/28/20 12/28/20 Range/Units 13:37 13:57 13:57 WBC 18.4 H (3.8-10.6) k/uL RBC 3.29 L (3.80-5.40) m/uL Hgb 10.1 L (11.4-16.0) gm/dL Hct 30.4 L (34.0-46.0) % Neutrophils # 15.4 H (1.3-7.7) k/uL Monocytes # (0-1.0) k/uL ABG pH (7.35-7.45) ABG pCO2 (35-45) mmHg ABG HCO3 (21-25) mmol/L ABG Total CO2 (19-24) mmol/L Sodium (137-145) mmol/L Chloride (98-107) mmol/L Carbon Dioxide (22-30) mmol/L BUN (7-17) mg/dL Creatinine (0.52-1.04) mg/dL Glucose (74-99) mg/dL POC Glucose (mg/dL) 121 H (75-99) mg/dL Plasma Lactic Acid Rakesh (0.7-2.0) mmol/L Calcium (8.4-10.2) mg/dL AST (14-36) U/L Alkaline Phosphatase (38-126) U/L Total Protein (6.3-8.2) g/dL Albumin (3.5-5.0) g/dL TSH (0.465-4.680) mIU/L Urine Appearance Turbid H (Clear) Urine Protein 2+ H (Negative) Urine Ketones Trace H (Negative) Urine Blood Large H (Negative) Ur Leukocyte Esterase Large H (Negative) Urine RBC 122 H (0-5) /hpf Urine WBC >182 H (0-5) /hpf Urine WBC Clumps Many H (None) /hpf Amorphous Sediment Rare H (None) /hpf Urine Bacteria Many H (None) /hpf Urine Mucus Few H (None) /hpf 12/28/20 12/28/20 12/28/20 Range/Units 13:57 13:57 21:17 WBC (3.8-10.6) k/uL RBC (3.80-5.40) m/uL Hgb (11.4-16.0) gm/dL Hct (34.0-46.0) % Neutrophils # (1.3-7.7) k/uL Monocytes # (0-1.0) k/uL ABG pH (7.35-7.45) ABG pCO2 (35-45) mmHg ABG HCO3 (21-25) mmol/L ABG Total CO2 (19-24) mmol/L Sodium 131 L (137-145) mmol/L Chloride (98-107) mmol/L Carbon Dioxide 21 L (22-30) mmol/L BUN 53 H (7-17) mg/dL Creatinine 2.16 H (0.52-1.04) mg/dL Glucose 122 H (74-99) mg/dL POC Glucose (mg/dL) 120 H (75-99) mg/dL Plasma Lactic Acid Rakesh 3.3 H* (0.7-2.0) mmol/L Calcium 8.3 L (8.4-10.2) mg/dL AST 39 H (14-36) U/L Alkaline Phosphatase 162 H (38-126) U/L Total Protein 6.2 L (6.3-8.2) g/dL Albumin 2.4 L (3.5-5.0) g/dL TSH 5.520 H (0.465-4.680) mIU/L Urine Appearance (Clear) Urine Protein (Negative) Urine Ketones (Negative) Urine Blood (Negative) Ur Leukocyte Esterase (Negative) Urine RBC (0-5) /hpf Urine WBC (0-5) /hpf Urine WBC Clumps (None) /hpf Amorphous Sediment (None) /hpf Urine Bacteria (None) /hpf Urine Mucus (None) /hpf 12/29/20 12/29/20 12/29/20 Range/Units 04:42 04:42 04:42 WBC 21.4 H (3.8-10.6) k/uL RBC 2.81 L (3.80-5.40) m/uL Hgb 8.4 L D (11.4-16.0) gm/dL Hct 26.9 L (34.0-46.0) % Neutrophils # 18.5 H (1.3-7.7) k/uL Monocytes # 1.1 H (0-1.0) k/uL ABG pH (7.35-7.45) ABG pCO2 (35-45) mmHg ABG HCO3 (21-25) mmol/L ABG Total CO2 (19-24) mmol/L Sodium 135 L (137-145) mmol/L Chloride 110 H (98-107) mmol/L Carbon Dioxide 13 L (22-30) mmol/L BUN 42 H (7-17) mg/dL Creatinine 2.02 H (0.52-1.04) mg/dL Glucose 168 H (74-99) mg/dL POC Glucose (mg/dL) (75-99) mg/dL Plasma Lactic Acid Rakesh 8.1 H* (0.7-2.0) mmol/L Calcium 7.1 L (8.4-10.2) mg/dL AST (14-36) U/L Alkaline Phosphatase (38-126) U/L Total Protein (6.3-8.2) g/dL Albumin (3.5-5.0) g/dL TSH (0.465-4.680) mIU/L Urine Appearance (Clear) Urine Protein (Negative) Urine Ketones (Negative) Urine Blood (Negative) Ur Leukocyte Esterase (Negative) Urine RBC (0-5) /hpf Urine WBC (0-5) /hpf Urine WBC Clumps (None) /hpf Amorphous Sediment (None) /hpf Urine Bacteria (None) /hpf Urine Mucus (None) /hpf 12/29/20 Range/Units 08:16 WBC (3.8-10.6) k/uL RBC (3.80-5.40) m/uL Hgb (11.4-16.0) gm/dL Hct (34.0-46.0) % Neutrophils # (1.3-7.7) k/uL Monocytes # (0-1.0) k/uL ABG pH 7.08 L* (7.35-7.45) ABG pCO2 23 L (35-45) mmHg ABG HCO3 7 L* (21-25) mmol/L ABG Total CO2 7 L (19-24) mmol/L Sodium (137-145) mmol/L Chloride (98-107) mmol/L Carbon Dioxide (22-30) mmol/L BUN (7-17) mg/dL Creatinine (0.52-1.04) mg/dL Glucose (74-99) mg/dL POC Glucose (mg/dL) (75-99) mg/dL Plasma Lactic Acid Rakesh (0.7-2.0) mmol/L Calcium (8.4-10.2) mg/dL AST (14-36) U/L Alkaline Phosphatase (38-126) U/L Total Protein (6.3-8.2) g/dL Albumin (3.5-5.0) g/dL TSH (0.465-4.680) mIU/L Urine Appearance (Clear) Urine Protein (Negative) Urine Ketones (Negative) Urine Blood (Negative) Ur Leukocyte Esterase (Negative) Urine RBC (0-5) /hpf Urine WBC (0-5) /hpf Urine WBC Clumps (None) /hpf Amorphous Sediment (None) /hpf Urine Bacteria (None) /hpf Urine Mucus (None) /hpf Microbiology - Last 24 Hours (Table) 12/28/20 13:57 Urine Culture - Preliminary Urine,Voided Assessment and Plan Assessment: Septic shock secondary to UTI Alcoholic liver cirrhosis Ischemic cardiomyopathy Recent left upper extremity fracture Chronic kidney disease, stage III Hypothyroidism History of GERD Plan: This is a pleasant 65 years old female who presents with septic shock and UTI. Continue with broad-spectrum antibiotics as per pulmonary/critical care team. Follow-up urine culture. Continue with pressors and IV fluids as per pulmonary/critical care team will follow the patient closely. Follow-up with GI team consult Also consult cardiology. Saw the patient on aspirin Labs and medication were reviewed.. Continue same treatment. Continue with symptomatic treatment. Resume home medication. Monitor lytes and vitals. DVT and GI prophylaxis. Further recommendations depends on the clinical course of the patient DVT prophylaxis: Subcutaneou Lovenox GI Prophylaxis: Ppi PT/OT: Pending Prognosis is guarded CODE STATUS: DO NOT RESUSCITATE and DO NOT INTUBATE as per daughter and has been on that side based on patient wishes
[2020-12-29] MEDS ORDERED: DEXTROSE 5% IN WATER 1,000 ML with SODIUM BICARB (1 MEQ/ML) 150 ML IV SCH (11:00)
[2020-12-29 13:36] VITALS: BP 77/58; TEMP 93.9
[2020-12-29] MEDS ORDERED: LORazepam 2 MG/ML INJ IV PRN (13:49)
[2020-12-29] MEDS ORDERED: ONDANSETRON 4 MG/2 ML VIAL IVP PRN (13:49)
[2020-12-29] MEDS ORDERED: ATROPINE OPHTH SOLN 1% 5ML BTL SUBLINGUAL PRN (13:49)
[2020-12-29] MEDS ORDERED: MORPHINE SULFATE 2 MG/ML SYRINGE IV PRN (13:49)
[2020-12-29] MEDS ORDERED: SCOPOLAMINE 1.5MG/72HR PATCH TRANSDERM SCH (14:00)
[2020-12-29 14:12] VITALS: BMI 18.3
[2020-12-29] MEDS: MORPHINE SULFATE 4 MG/ML SYRINGE IV PRN ×2 (14:32→14:54)
[2020-12-29 14:42] VITALS: PULSE 141; RESP 30
[2020-12-29] MEDS ORDERED: FOLIC ACID 1 MG TAB PO SCH (21:00)
[2020-12-30] MEDS ORDERED: VANCOMYCIN 1,000 MG in SODIUM CHLORIDE 0.9% 250 ML IVPB ONE (06:00)
[2020-12-30] MEDS ORDERED: ENOXAPARIN 30 MG/0.3 ML SYRINGE SQ SCH (09:00)
--- NOTE | 2021-01-03 09:48 | CDI ---
Documentation Clarification Form Mortality Review Date: 01/03/2021 09:33:35 AM From: Fadia Johnson RN, CCDS Admit Date: 12/28/2020 04:52:00 PM Patient Name: Flower Otto Visit Number: [id number] Discharge Date: 12/29/2020 03:34:00 PM ATTENTION: The Clinical Documentation Specialists (CDI) and [facility] Coding Staff appreciate your assistance in clarifying documentation. Please respond to the clarification below the line at the bottom and electronically sign. The CDI & [facility] Coding staff will review the response and follow-up if needed. Please note: Queries are made part of the Legal Health Record. If you have any questions, please contact the author of this message via ITS. Dr. Allan E Sheet A low BMI has been noted in a critically ill patient. Please provide clinical significance to accurately reflect SOI/ROM History/Risk Factors: Metabolic encephalopathy, Hepatorenal syndrome, CKD stage 3, Ascites with chronic ETOH liver cirrhosis and hepatic failure, GERD, Acute UTI, Sepsis with septic shock, Acute Hypoxic Respiratory Failure Clinical Indicators: 12/28 ED General exam: "General appearance: alert, in no apparent distress, cachectic." 12/29 H&P: "The patient is confused, does not follow command, eyes are partially opened. Nonverbal. Cachectic." 12/29 Pulmonary consult: "Gen. appearance the patient is calm comfortable likely distress, thin frail with a body mass index of 23.1." 12/28-12/29 Labs: Total Protein 6.2, Albumin 2.4, Ca+ 8.3/7.1, BUN 53/42, Creatinine 2.16/2.02 Current BMI: 18.3 Insufficient energy intake: "Patient is unable to eat d/t SOB," per dietary consult Weight Loss: "patient appears underweight." Per dietary consult Loss of subcutaneous fat: Pressure injuries to sacrum and left lateral foot unstageable per dietary consult Fluid accumulation: chronic recurrent ascites with regularly scheduled paracentesis, patient refused last one. Decreased hand glass sander strength: generalized weakness Treatment: Dietary Consult: completed 12/29 Supplements: no recommendations made d/t plans for comfort care Lab monitoring: daily In your professional opinion, can you please clarify if these findings signify one of the following conditions? Moderate Protein-Calorie Malnutrition Severe Protein-Calorie Malnutrition Other condition, please specify Unable to determine (Last Revision: April 2019) Moderate Protein-Calorie Malnutrition MTDD
--- NOTE | 2021-01-03 10:00 | CDI ---
Documentation Clarification Form Date: 01/03/2021 09:58:01 AM From: Fadia Johnson RN, CCDS Admit Date: 12/28/2020 04:52:00 PM Patient Name: Flower Otto Visit Number: [id number] Discharge Date: 12/29/2020 03:34:00 PM ATTENTION: The Clinical Documentation Specialists (CDI) and [facility] Coding Staff appreciate your assistance in clarifying documentation. Please respond to the clarification below the line at the bottom and electronically sign. The CDI & [facility] Coding staff will review the response and follow-up if needed. Please note: Queries are made part of the Legal Health Record. If you have any questions, please contact the author of this message via ITS. Dr. Fletcher A sacral pressure ulcer is noted in the nursing documentation and in a photograph in the medical record. Please review and document the condition and if it was POA, to accurately reflect SOI/ROM. History/Risk Factors: Sepsis with septic shock, UTI, Acute hypoxic respiratory failure, Heptorenal syndrome, CKD stage 3, Alcoholic liver cirrhosis with ascites and liver failure, poor nutritional status Clinical Indicators: 12/29 Nursing Assessment: Location: Sacrum 12/29 Nursing Assessment: Wound description: "unstageable, 2.5x2.5x0.8, 100% eschar and necrosis, exposed fascia, indistinct wound margins with Liza-wound induration and erythema, scant amount of purulent drainage" Photo available in [employer] Treatment: Consults: none- patient was made comfort care No treatment ordered Elements for accurate and compliant documentation of an ulcer: *The location/laterality of the ulcer *Etiology (decubitus/pressure, diabetic, PVD) *Stage I-IV, Unstageable, Suspected Deep Tissue Injury (To the deepest stage) *If the ulcer was present at admission (POA) or occurred after admission In your professional opinion, can you please clarify the diagnosis, location, laterality and whether present on admission (POA): Stage 1 Pressure/Decubitus Ulcer (intact skin, non-blanching redness of local area) Stage 2 Pressure/Decubitus Ulcer (Partial thickness, loss of dermis, pink wound bed) Stage 3 Pressure/Decubitus Ulcer (Full thickness tissue loss) Stage 4 Pressure/Decubitus Ulcer (Full thickness tissue loss with exposed bone, tendon, or muscle. May have slough or eschar present) Unstageable Other condition, please specify Unable to determine Please indicate etiology of pressure ulcer (if known). (Last Revision: July 2017) Unable to determine MTDD
--- NOTE | 2021-01-03 10:11 | CDI ---
Documentation Clarification Form Date: 01/03/2021 10:01:17 AM From: Fadia Johnson RN, CCDS Admit Date: 12/28/2020 04:52:00 PM Patient Name: Flower Otto Visit Number: [id number] Discharge Date: 12/29/2020 03:34:00 PM ATTENTION: The Clinical Documentation Specialists (CDI) and [facility] Coding Staff appreciate your assistance in clarifying documentation. Please respond to the clarification below the line at the bottom and electronically sign. The CDI & [facility] Coding staff will review the response and follow-up if needed. Please note: Queries are made part of the Legal Health Record. If you have any questions, please contact the author of this message via ITS. Dr. Allan E Sheet A left lateral foot pressure injury has been documented in the nursing assessments, along with a photo in the medical record, Please review and provide clinical significance to accurately reflect SOI/ROM. History/Risk Factors: Sepsis with septic shock, UTI, Acute hypoxic respiratory failure, Heptorenal syndrome, CKD stage 3, Alcoholic liver cirrhosis with ascites and liver failure, poor nutritional status Clinical Indicators: 12/29 Nursing Assessment: Location: Left lateral foot 12/29 Nursing Assessment Wound description: Unstageable, 1x0.7, 100% tissue necrosis and eschar. Photo available in Medical record Treatment: Consults: Dietary No treatment ordered. Patient was made comfort measures Elements for accurate and compliant documentation of an ulcer: *The location/laterality of the ulcer *Etiology (decubitus/pressure, diabetic, PVD) *Stage I-IV, Unstageable, Suspected Deep Tissue Injury (To the deepest stage) *If the ulcer was present at admission (POA) or occurred after admission In your professional opinion, can you please clarify the diagnosis, location, laterality and whether present on admission (POA): Stage 1 Pressure/Decubitus Ulcer (intact skin, non-blanching redness of local area) Stage 2 Pressure/Decubitus Ulcer (Partial thickness, loss of dermis, pink wound bed) Stage 3 Pressure/Decubitus Ulcer (Full thickness tissue loss) Stage 4 Pressure/Decubitus Ulcer (Full thickness tissue loss with exposed bone, tendon, or muscle. May have slough or eschar present) Unstageable Other condition, please specify Unable to determine Please indicate etiology of pressure ulcer (if known). (Last Revision: July 2017) Unable to determine MTDD
--- NOTE | 2021-01-03 10:29 | CDI ---
Documentation Clarification Form Mortality Review Date: 01/03/2021 10:27:13 AM From: Fadia Johnson RN, CCDS Admit Date: 12/28/2020 04:52:00 PM Patient Name: Flower Otto Visit Number: [id number] Discharge Date: 12/29/2020 03:34:00 PM ATTENTION: The Clinical Documentation Specialists (CDI) and [facility] Coding Staff appreciate your assistance in clarifying documentation. Please respond to the clarification below the line at the bottom and electronically sign. The CDI & [facility] Coding staff will review the response and follow-up if needed. Please note: Queries are made part of the Legal Health Record. If you have any questions, please contact the author of this message via ITS. Dr. Allan E Sheet Patient is noted to have ETOH liver cirrhosis and ETOH liver disease with ascites. Please clarify patient HX of ETOH use, to accurately reflect SOI/ROM History/Risk Factors: ETOH live cirrhosis with ascities, Ischemic cardiomyopathy, CKD stage 3, hepatorenal syndrome, GERD, ETOH liver disease, metabolic encephalopathy Clinical Indicators: 12/29 H&P: "Chronic alcohol liver disease /cirrhosis, chronic ascites, Past Alcohol Use History: None Reported." Labs: Alk Phos 162, Ammonia 14, plasma lactic acid 1.6/8.1/13.8 Treatment: Consults: Pulmonary Ativan 1mg IVP q 6hrs prn Zofran 4 mg IVP q 8 hrs. PRN 12/29 4 amps HCO3 12/28 3L 0.9% NS IVF Bolus followed by 130 cc/hr. In your professional opinion, can you please clarify if the above clinical indicators and treatment signify any of the following? Alcohol dependence Alcohol abuse Other, please specify Unable to determine AND Evidence of thiamine deficiency due to chronic alcohol use/alcoholism Prophylactic treatment of potential thiamine deficiency associated with alcohol use/alcoholism Unable to determine Other, please specify (Last Revision: July 2017) Alcohol abuse MTDD
== END 2020-12-29 15:34 | disposition expired | DRG 871 ==
LOC: EC 12:46 → 5NMEDONC 16:52 → 2SICU 20:43
PROVIDERS: ADMIT Internal Medicine; ATTEND Internal Medicine
PROC: 02HV33Z Insertion of Infusion Device into Superior Vena Cava, Percutaneous Approach (ICD-10-PCS; principal; 2020-12-28)
PROC: 3E043XZ Introduction of Vasopressor into Central Vein, Percutaneous Approach (ICD-10-PCS; 2020-12-28)
PROC: 4A133B1 Monitoring of Arterial Pressure, Peripheral, Percutaneous Approach (ICD-10-PCS; 2020-12-29)
PROC: 4A133J1 Monitoring of Arterial Pulse, Peripheral, Percutaneous Approach (ICD-10-PCS; 2020-12-29)
PROC: 04HY32Z Insertion of Monitoring Device into Lower Artery, Percutaneous Approach (ICD-10-PCS; 2020-12-29)
DX: A41.9 Sepsis, unspecified organism (principal); K76.7 Hepatorenal syndrome; J96.01 Acute respiratory failure with hypoxia; R65.21 Severe sepsis with septic shock; G93.41 Metabolic encephalopathy; E44.0 Moderate protein-calorie malnutrition; R64 Cachexia; E87.2 Acidosis; Z68.1 Body mass index [BMI] 19.9 or less, adult; N39.0 Urinary tract infection, site not specified; K70.40 Alcoholic hepatic failure without coma; K70.31 Alcoholic cirrhosis of liver with ascites; D63.1 Anemia in chronic kidney disease; N18.30 Chronic kidney disease, stage 3 unspecified; Z66 Do not resuscitate; Z51.5 Encounter for palliative care; Z20.822 Contact with and (suspected) exposure to COVID-19; K21.9 Gastro-esophageal reflux disease without esophagitis; F10.10 Alcohol abuse, uncomplicated; E03.9 Hypothyroidism, unspecified; I25.5 Ischemic cardiomyopathy; I51.7 Cardiomegaly; S42.402D Unspecified fracture of lower end of left humerus, subsequent encounter for fracture with routine healing; W19.XXXD Unspecified fall, subsequent encounter; Z91.81 History of falling; Z71.3 Dietary counseling and surveillance; Z79.890 Hormone replacement therapy; Z79.899 Other long term (current) drug therapy
CPT/HCPCS: 36415; 70450; 71045; 71046; 74176; 80048; 80053; 81001; 82140; 82533; 82550; 82805; 83605; 83735; 84439; 84443; 84484; 85025; 85610; 85730; 87040; 87077; 87086; 87186; 87635; 93005; 93306; 96374; 99285